=== PATIENT | female | born 1965 | race African-American/Black ===

== ENCOUNTER 2023-01-31 05:47 | Emergency (ER) | payer SELFPAY ==
[~2023-01-31] VITALS: Ht 170.2 cm; Wt 87.0 kg
[2023-01-31 05:50] VITALS: BP 138/90; PULSE 100; RESP 18; TEMP 98.3; O2SAT 98
[2023-01-31] MEDS ORDERED: ACETAMINOPHEN 325MG TABLET PO ONE (06:15)
== END 2023-01-31 07:38 | disposition home or self-care (01) ==
LOC: ER 05:47
DX: S09.90XA Unspecified injury of head, initial encounter (principal); Y08.89XA Assault by other specified means, initial encounter; Y93.89 Activity, other specified; Y92.89 Other specified places as the place of occurrence of the external cause; Y99.8 Other external cause status
CPT/HCPCS: 99283; Z7610

== ENCOUNTER 2023-01-31 17:41 | Emergency (ER) | payer SELFPAY ==
[~2023-01-31] VITALS: Ht 165.1 cm; Wt 73.0 kg
[2023-01-31 17:45] VITALS: BP 191/103; PULSE 106; RESP 18; TEMP 98.1; O2SAT 99
[2023-01-31] MEDS ORDERED: TETANUS, DIPHTHERIA, PERTUSSIS VAC/PF 0.5ML (>10YR OLD) IM ONE (19:00)
== END 2023-01-31 19:25 | disposition home or self-care (01) ==
LOC: ER 17:41
DX: S01.01XA Laceration without foreign body of scalp, initial encounter (principal); G89.11 Acute pain due to trauma; Y08.89XA Assault by other specified means, initial encounter; Y93.89 Activity, other specified; Y92.89 Other specified places as the place of occurrence of the external cause; Y99.8 Other external cause status
CPT/HCPCS: 99283